=== PATIENT | male | born 1975 | race Caucasian/White ===

== ENCOUNTER 2019-07-09 03:45 | Emergency (ER) | payer BC ==
[~2019-07-09] VITALS: Ht 177.8 cm; Wt 127.3 kg
[2019-07-09 03:48] VITALS: BP 145/74; TEMP 98.4
[2019-07-09] MEDS ORDERED: PRINIVIL40 MG PO (03:53)
[2019-07-09] MEDS ORDERED: DEPO-TESTOS100 MG/ML IM (03:53)
[2019-07-09] MEDS ORDERED: MULTI VITAMINS1 TAB PO (03:54)
[2019-07-09] MEDS ORDERED: ARIMIDEX1 MG PO (03:54)
[2019-07-09] MEDS ORDERED: ZYRTEC 10MG10 MG (03:54)
[2019-07-09 04:12] LABS: BASO % 0.3 % (0.0-2.0); EOS # 0.3 (0.0-0.7); EOS % 2.6 % (0-4.0); GRAN # 8.3 (1.4-6.5); GRAN % 74.1 % (42.2-75.2); LYMPH # 1.9 (1.2-3.4); LYMPH % 16.6 % (20.0-51.0); MEAN CELL VOLUME 89 fl (80.0-100.0); MEAN CORPUSCULAR HEMOGLOBIN 29 pg (27.0-31.0); MEAN CORPUSCULAR HGB CONC 33 g/dl (33.0-37.0); MEAN PLATELET VOLUME 10.4 fl (7.4-10.4); MONO # 0.6 (0.1-0.6); MONO % 5.7 % (1.7-9.3); PLATELET COUNT 249 K/mm3 (130-400); RED BLOOD COUNT 5.84 M/mm3 (4.20-5.60); REDCELL DISTRIBUTION WIDTH-CV 13.6 % (11.5-14.5)
[2019-07-09 04:24] LABS: ALBUMIN 4.8 gm/dL (3.5-5.0); BILIRUBIN,TOTAL 0.5 mg/dL (0.0-1.0); CALCIUM 9.7 mg/dL (8.4-10.2); CREATININE, serum 1.22 (0.66-1.25); POTASSIUM 4.5 mmol/L (3.4-5.0); TOTAL PROTEIN 8.4 gm/dL (6.4-8.2)
[2019-07-09 05:52] VITALS: PULSE 71
== END 2019-07-09 05:52 | disposition home or self-care (01) ==
LOC: COL.ER 03:45
PROVIDERS: Emergency Medicine
DX: K59.00 Constipation, unspecified (principal); I10 Essential (primary) hypertension
CPT/HCPCS: J0500